=== PATIENT | female | born 1995 | race Hispanic/Latino ===

== ENCOUNTER 2023-01-16 11:15 | Emergency (ER) | payer OTHER, SELFPAY ==
[2023-01-16 12:08] LABS: Absolute Lymphocytes (CBC) 0.6 K/uL (0.7-4.9); Hematocrit 34.4 % (36.0-45.0); MCV 78.9 fL (80-100); MPV 10.1 fL (7.6-11.3); RBC Red Blood Cell Count 4.36 M/uL (3.86-4.86)
[2023-01-16 12:16] LABS: Specific Gravity 1.026 (1.005-1.030)
[2023-01-16 12:31] LABS: Albumin 3.7 g/dL (3.4-5.0); Bilirubin Total 1.4 mg/dL (0.2-1.0); Potassium 3.3 mEq/L (3.5-5.1); Protein, Total 7.7 g/dL (6.4-8.2)
[2023-01-16 13:27] LABS: Blood Morphology Comment NOT SEEN (NOT SEEN); Platelet Estimate ADEQ; White Blood Cell Scan OK (OK)
[2023-01-16] MEDS ORDERED: ONDANSETRON 4 MG/2 ML VIAL ONE (14:09)
[2023-01-16] MEDS ORDERED: MORPHINE 4 MG/ML SYR ONE (14:09)
[2023-01-16] MEDS ORDERED: NA CHLORIDE 0.9% 1,000 ML ONE (14:10)
[2023-01-16] MEDS ORDERED: POTASSIUM 25 MEQ EFFERV TAB ONE (14:10)
[2023-01-16] MEDS ORDERED: FAMOTIDINE 20 MG/2 ML VIAL IV ONE (14:10)
--- NOTE | 2023-01-16 14:19 | EDPHYS ---
Physician Documentation [facility] Name: Kim Waldrop Age: 27 yrs Sex: Female : 1995 Arrival Date: 01/16/2023 Time: 11:15 Bed DIS2 Private MD: ED Physician Mark Jackson HPI: 01/16 14:13 This 27 yrs old Female presents to ER via Ambulatory with complaints of darya Abdominal Pain, Nausea/Vomiting/Diarrhea. 14:13 The patient presents to the emergency department with nausea, vomiting, diarrhea, darya abdominal pain, of the epigastric area, right upper quadrant and left upper quadrant. Onset: The symptoms/episode began/occurred 1 day(s) ago. Possible causes: unknown. The symptoms are aggravated by nothing. The symptoms are alleviated by nothing. Associated signs and symptoms: The patient has no apparent associated signs or symptoms. Severity of symptoms: At their worst the symptoms were mild moderate in the emergency department the symptoms have improved moderately. The patient has experienced similar episodes in the past, several times. Historical: - Allergies: 11:58 No Known Allergies; nj1 - PMHx: 11:58 None; nj1 - PSHx: 11:58 None; nj1 - Immunization history:: Client reports having NOT received the Covid vaccine. - Social history:: Smoking status: Reported history of juuling and/or vaping. ROS: 14:13 Constitutional: Negative for fever, chills, and weight loss, Eyes: Negative for injury, darya pain, redness, and discharge, ENT: Negative for injury, pain, and discharge, Neck: Negative for injury, pain, and swelling, Cardiovascular: Negative for chest pain, palpitations, and edema, Respiratory: Negative for shortness of breath, cough, wheezing, and pleuritic chest pain, Back: Negative for injury and pain, : Negative for injury, bleeding, discharge, and swelling, MS/Extremity: Negative for injury and deformity, Skin: Negative for injury, rash, and discoloration, Neuro: Negative for headache, weakness, numbness, tingling, and seizure, Psych: Negative for depression, anxiety, suicide ideation, homicidal ideation, and hallucinations, Allergy/Immunology: Negative for hives, rash, and allergies, Endocrine: Negative for neck swelling, polydipsia, polyuria, polyphagia, and marked weight changes, Hematologic/Lymphatic: Negative for swollen nodes, abnormal bleeding, and unusual bruising. 14:13 Abdomen/GI: Positive for abdominal pain, nausea, vomiting, diarrhea, abdominal cramps, of the epigastric area, right upper quadrant and left upper quadrant. Exam: 14:13 Constitutional: This is a well developed, well nourished patient who is awake, alert, darya and in no acute distress. Head/Face: Normocephalic, atraumatic. Eyes: Pupils equal round and reactive to light, extra-ocular motions intact. Lids and lashes normal. Conjunctiva and sclera are non-icteric and not injected. Cornea within normal limits. Periorbital areas with no swelling, redness, or edema. ENT: Nares patent. No nasal discharge, no septal abnormalities noted. Tympanic membranes are normal and external auditory canals are clear. Oropharynx with no redness, swelling, or masses, exudates, or evidence of obstruction, uvula midline. Mucous membranes moist. Neck: Trachea midline, no thyromegaly or masses palpated, and no cervical lymphadenopathy. Supple, full range of motion without nuchal rigidity, or vertebral point tenderness. No Meningismus. Chest/axilla: Normal chest wall appearance and motion. Nontender with no deformity. No lesions are appreciated. Cardiovascular: Regular rate and rhythm with a normal S1 and S2. No gallops, murmurs, or rubs. Normal PMI, no JVD. No pulse deficits. Respiratory: Lungs have equal breath sounds bilaterally, clear to auscultation and percussion. No rales, rhonchi or wheezes noted. No increased work of breathing, no retractions or nasal flaring. Abdomen/GI: Soft, non-tender, with normal bowel sounds. No distension or tympany. No guarding or rebound. No evidence of tenderness throughout. Back: No spinal tenderness. No costovertebral tenderness. Full range of motion. Female : Normal external genitalia. Skin: Warm, dry with normal turgor. Normal color with no rashes, no lesions, and no evidence of cellulitis. MS/ Extremity: Pulses equal, no cyanosis. Neurovascular intact. Full, normal range of motion. Neuro: Awake and alert, GCS 15, oriented to person, place, time, and situation. Cranial nerves II-XII grossly intact. Motor strength 5/5 in all extremities. Sensory grossly intact. Cerebellar exam normal. Normal gait. Psych: Awake, alert, with orientation to person, place and time. Behavior, mood, and affect are within normal limits. Vital Signs: 11:49 BP 152 / 99; Pulse 94; Resp 18; Temp 98.8(O); Pulse Ox 100% ; Weight 113.4 kg; Height 5 nj1 ft. 1 in. ; Pain 5/10; 11:49 Body Mass Index 47.24 (113.40 kg, 154.94 cm) [facility] 11:49 Pain Scale: Adult nj1 MDM: 11:59 Patient medically screened. darya 14:14 Differential diagnosis: Nonspecific abd pain, gastritis, cholecystitis, pancreatitis, darya appendicitis, diverticulitis, viral gastroenteritis, gastroenteritis. Data reviewed: vital signs, nurses notes, lab test result(s), CBC, electrolytes, hepatic panel. Consideration of Admission/Observation Escalation of care including admission/observation considered. I considered the following discharge prescriptions or medication management in the emergency department Medications were administered in the Emergency Department. See MAR. Test considered but Not performed: CT: NO CT , NO USG. Historians other than the Patient: Friend: INFORMED. Care significantly affected by the following chronic conditions: Obesity. 01/16 11:36 Order name: CBC with Diff; Complete Time: 13:59 [facility] 01/16 11:36 Order name: CMP; Complete Time: 12:50 [facility] 01/16 11:36 Order name: Lipase; Complete Time: 12:50 [facility] 01/16 11:36 Order name: Test, Urine; Complete Time: 12:50 [facility] 01/16 13:28 Order name: CBC Smear Scan; Complete Time: 13:59 [facility] 01/16 11:36 Order name: IV Saline Lock; Complete Time: 11:54 [facility] 01/16 11:36 Order name: Labs collected and sent; Complete Time: 11:54 [facility] Administered Medications: 14:09 Not Given (Duplicate Order): NS 0.9% IV 1000 ml IV at 1 bolus Per protocol; 1000 mL darya bolus 14:09 Not Given (Duplicate Order): morphine IVP or IV 4 mg IVP once over 4 mins darya 14:17 Drug: Famotidine IVP 20 mg Route: IVP; Site: right antecubital; hb 14:17 Drug: Ondansetron IVP 4 mg Route: IVP; Site: right antecubital; hb 14:17 Drug: Potassium PO Effervescent Tablet 25 mEq Route: PO; hb 14:17 Drug: Dicyclomine PO 20 mg Route: PO; hb Disposition Summary: 01/16/23 14:18 Discharge Ordered Location: Home darya Problem: new darya Symptoms: have improved darya Condition: Stable darya Diagnosis - Epigastric abdominal tenderness darya - Nausea with vomiting, unspecified darya - Diarrhea, unspecified darya - Other cholelithiasis without obstruction darya Followup: darya - With: Private Physician - When: 2 - 3 days - Reason: Recheck today's complaints, Continuance of care, Re-evaluation by your physician Followup: darya - With: Cali Mazariegos MD - When: 2 - 3 days - Reason: Recheck today's complaints, Re-evaluation by your physician Discharge Instructions: - Discharge Summary Sheet darya - Abdominal Pain, Adult darya - Food Choices to Help Relieve Diarrhea, Adult darya - Diarrhea, Adult darya - Nausea and Vomiting, Adult darya - Nausea, Adult darya - Cholelithiasis dayra - Cholelithiasis, [id number] darya - Nausea and Vomiting, Adult, [id number] darya - Diarrhea, Adult, [id number] darya - Nausea, Adult, [id number] darya Forms: - Medication Reconciliation Form [facility] - Thank You Letter [facility] - Antibiotic Education [facility] - Prescription Opioid Use [facility] Prescriptions: - Pepcid 20 mg Oral Tablet - take 1 tablet by ORAL route every 12 hours for 21 days; 42 tablet; Refills: 0, [facility] Product Selection Permitted - Zofran 4 mg Oral Tablet - take 1 tablet by ORAL route every 12 hours As needed; 20 tablet; Refills: 0, [facility] Product Selection Permitted - dicyclomine 20 mg Oral Tablet - take 1 tablet by ORAL route 4 times per day; 28 tablet; Refills: 0, Product [facility] Selection Permitted Signatures: Dispatcher [employer] Mark Banuelos MD MD cha Baxter, Heather, RN RN Devika Sheppard RN RN nj1
--- NOTE | 2023-01-16 14:19 | ER ---
Nurse's Notes [facility] Name: Kim Waldrop Age: 27 yrs Sex: Female : 1995 Arrival Date: 01/16/2023 Time: 11:15 Bed DIS2 Private MD: Diagnosis: Epigastric abdominal tenderness;Nausea with vomiting, unspecified;Diarrhea, unspecified;Other cholelithiasis without obstruction Presentation: 01/16 11:49 Chief complaint: Patient states: Abdominal pain on/off since yesterday, diarrhea last nj1 night and today, vomited twice today. Slightly nauseous at this moment. Coronavirus screen: Vaccine status: Patient reports being unvaccinated. Ebola Screen: Patient denies travel to an Ebola-affected area in the 21 days before illness onset. Initial Sepsis Screen: Does the patient meet any 2 criteria? HR > 90 bpm. No. Patient's initial sepsis screen is negative. Does the patient have a suspected source of infection? No. Patient's initial sepsis screen is negative. Risk Assessment: Do you want to hurt yourself or someone else? Patient reports no desire to harm self or others. Onset of symptoms was January 15, 2023. 11:49 Method Of Arrival: Ambulatory [facility] 11:49 Acuity: TIERNEY 3 nj Historical: - Allergies: 11:58 No Known Allergies; nj1 - PMHx: 11:58 None; nj1 - PSHx: 11:58 None; nj1 - Immunization history:: Client reports having NOT received the Covid vaccine. - Social history:: Smoking status: Reported history of juuling and/or vaping. Vital Signs: 11:49 BP 152 / 99; Pulse 94; Resp 18; Temp 98.8(O); Pulse Ox 100% ; Weight 113.4 kg; Height 5 nj1 ft. 1 in. ; Pain 5/10; 11:49 Body Mass Index 47.24 (113.40 kg, 154.94 cm) [facility] 11:49 Pain Scale: Adult [facility] ED Course: 11:18 Patient arrived in ED. ts1 11:35 Mark Jackson MD is Attending Physician. darya 11:54 CBC with Diff Sent. bc6 11:54 CMP Sent. bc6 11:54 Lipase Sent. bc6 11:54 Test, Urine Sent. bc6 11:54 Inserted saline lock: 20 gauge in right antecubital area, using aseptic technique. bc6 11:58 Triage completed. nj1 11:59 Arm band placed on right wrist. nj1 14:17 Adore Villafana, RN is Primary Nurse. hb 14:17 Cali Mazariegos MD is Referral Physician. darya Administered Medications: 14:09 Not Given (Duplicate Order): NS 0.9% IV 1000 ml IV at 1 bolus Per protocol; 1000 mL darya bolus 14:09 Not Given (Duplicate Order): morphine IVP or IV 4 mg IVP once over 4 mins darya 14:17 Drug: Famotidine IVP 20 mg Route: IVP; Site: right antecubital; hb 14:17 Drug: Ondansetron IVP 4 mg Route: IVP; Site: right antecubital; hb 14:17 Drug: Potassium PO Effervescent Tablet 25 mEq Route: PO; hb 14:17 Drug: Dicyclomine PO 20 mg Route: PO; hb Outcome: 14:18 Discharge ordered by . darya 14:27 Patient left the ED. hb Signatures: Mark Jackson MD MD cha Baxter, Heather, RN RN Giulia Monten[place] 6 Devika Sheppard RN RN verena1 Caty Mathis PAS PAS ts1
[2023-01-16] MEDS ORDERED: DICYCLOMINE HCL 10 MG CAP ONE (14:20)
[2023-01-16 14:43] VITALS: BP 152/99; TEMP 98.8; O2SAT 100
== END 2023-01-16 14:27 | disposition home or self-care (01) ==
LOC: ER 11:15
DX: K80.80 Other cholelithiasis without obstruction (principal); R11.2 Nausea with vomiting, unspecified; R19.7 Diarrhea, unspecified
CPT/HCPCS: 85025; 36415; 81025; 83690; 80053; 96375; 96374; 99284; J2405; J7030